=== PATIENT | female | born 1935 | race Caucasian/White ===

== ENCOUNTER 2021-02-26 18:32 | Inpatient (IN) | payer OTHER, MEDICAID ==
[~2021-02-26] VITALS: Ht 160 cm; Wt 70.8 kg
[2021-02-26 18:35] VITALS: BP 108/66
--- NOTE | 2021-02-26 18:44 | NUR ---
Pt WC assisted to bed 07.
[2021-02-26] MEDS ORDERED: ONDANSETRON 4 MG/2 ML VIAL IVP ONE (19:15)
[2021-02-26] MEDS ORDERED: NACL 0.9% 1,000 ML IV SCH ×2 (19:15→23:05)
--- NOTE | 2021-02-26 19:15 | NUR ---
Received in bed 9 with c/o nausea, vomiting x 6 episodes and abdominal pain since this morning while doing yard work. Acute onset LUQ and epigastric region, 01/18, "tearing/constant," non-radiating pain. +Chills +Dry mouth. Denies headache, fever, chills, diarrhea, SOB, chest pain. PMH/Sx/Meds: Denies NKA
--- NOTE | 2021-02-26 19:38 | NUR ---
Ultrasound at bedside.
[2021-02-26 19:42] LABS: BASOPHILS % (AUTO) 0.2 % (0.0-2.0); HEMATOCRIT 40.8 % (36-48); HEMOGLOBIN 13.7 g/dL (12.0-16.0); LYMPHOCYTES # (AUTO) 0.5 K/uL (2.5-16.5); LYMPHOCYTES % (AUTO) 4.1 % (20.5-51.1); MEAN CORPUSCULAR HEMOGLOBIN 30 pg (27-31); MEAN CORPUSCULAR HGB CONC 34 g/dL (33-37); MEAN CORPUSCULAR VOLUME 90.5 fL (80-94); MONOCYTES # (AUTO) 0.3 K/uL (0.8-1.0); MONOCYTES % (AUTO) 2.9 % (1.7-9.3); NEUTROPHILS # (AUTO) 10.7 K/uL (1.8-7.7); NEUTROPHILS % (AUTO) 92.8 % (42.2-75.2); PLATELET COUNT (AUTO) 235 K/uL (140-450); RED BLOOD CELL COUNT(AUTO) 4.51 MIL/uL (4.20-5.40); RED CELL DISTRIBUTION WIDTH 13.4 % (11.6-13.7); WHITE BLOOD COUNT (AUTO) 11.5 K/uL (4.8-10.8)
[2021-02-26 20:07] LABS: ALBUMIN 3.2 g/dL (3.4-5.0); AMYLASE 803 U/L (25-115); ANION GAP 13.1 (8-16); ASPARTATE AMINOTRANSFERASE 270 U/L (15-37); CARBON DIOXIDE 26.5 mmol/L (21-32); CHLORIDE 105 mmol/L (98-107); CREATININE 1.2 mg/dL (0.6-1.3); GLUCOSE 182 mg/dL (74-106); LIPASE 4770 U/L (73-393); POTASSIUM 3.6 mmol/L (3.5-5.1); SODIUM SERUM 141 mmol/L (136-145); TOTAL BILIRUBIN 0.7 mg/dL (0.0-1.0); UREA NITROGEN, BLOOD 13 mg/dL (7-18)
--- NOTE | 2021-02-26 20:30 | NUR ---
CONSENT SIGNED FOR CT
--- NOTE | 2021-02-26 20:44 | NUR ---
PT TAKEN TO CT
--- NOTE | 2021-02-26 22:00 | NUR ---
assisted up to bathroom. back to bed and made comfortable
[2021-02-26 22:07] LABS: APPEARANCE,URINE CLEAR (CLEAR); BILIRUBIN,URINE NEGATIVE (NEGATIVE); BLOOD, URINE TRACE-I (NEGATIVE); COLOR,URINE YELLOW (YELLOW); LEUKOCYTE ESTERASE ,URINE NEGATIVE (NEGATIVE); NITRITE, URINE NEGATIVE (NEGATIVE); UGLUCOSE NEGATIVE (NEGATIVE)
[2021-02-26 22:11] LABS: RBC,URINE 0-5 /HPF (0-5); WBC,URINE 0-5 /HPF (0-5)
[2021-02-26] MEDS ORDERED: MORPHINE SULFATE 4 MG/ML SYR IVP ONE (22:35)
[2021-02-26] MEDS ORDERED: MAG SULF 2000 MG/WATER PREMIX 50 ML IV PRN ×2 (23:05→23:15)
[2021-02-26] MEDS ORDERED: HYDROcodone/APAP 5/325 MG 1 TAB TAB PO PRN ×2 (23:05→23:15)
[2021-02-26] MEDS ORDERED: MAGNESIUM OXIDE 400 MG TAB PO PRN ×2 (23:05→23:15)
[2021-02-26] MEDS ORDERED: ONDANSETRON 4 MG/2 ML VIAL IVP PRN ×2 (23:05→23:15)
[2021-02-26] MEDS ORDERED: MORPHINE SULFATE 4 MG/ML SYR IVP PRN ×2 (23:05→23:15)
[2021-02-26] MEDS ORDERED: POTASSIUM CHLORIDE 10 MEQ TABER PO PRN ×2 (23:05→23:15)
[2021-02-26] MEDS ORDERED: KCL 20 MEQ/WATER INJ PREMIX 200 ML IV PRN ×2 (23:05→23:15)
[2021-02-26] MEDS ORDERED: ACETAMINOPHEN 325 MG TAB PO PRN ×2 (23:05→23:15)
[2021-02-27] MEDS: NACL 0.9% 1,000 ML IV SCH ×2 (00:20→11:45)
--- NOTE | 2021-02-27 02:00 | NUR ---
resting in bed with eyes closed, respirations regular and unlabored
--- NOTE | 2021-02-27 05:11 | NUR ---
lab at bedside
[2021-02-27] MEDS ORDERED: ASPI-1822 PO (05:27)
--- NOTE | 2021-02-27 06:00 | NUR ---
RESTING IN BED WITH EYES CLOSED, RESPIRATIONS REGULAR AND UNLABORED
[2021-02-27 06:02] LABS: CHOL/HDL RATIO 3.2 (1-4.5); MAGNESIUM 1.9 mg/dL (1.8-2.4)
[2021-02-27 06:04] LABS: ALBUMIN 2.9 g/dL (3.4-5.0); ANION GAP 11.7 (8-16); ASPARTATE AMINOTRANSFERASE 206 U/L (15-37); CARBON DIOXIDE 27.3 mmol/L (21-32); CHLORIDE 109 mmol/L (98-107); CREATININE 0.8 mg/dL (0.6-1.3); GLUCOSE 126 mg/dL (74-106); SODIUM SERUM 144 mmol/L (136-145); TOTAL BILIRUBIN 0.8 mg/dL (0.0-1.0); UREA NITROGEN, BLOOD 14 mg/dL (7-18)
[2021-02-27 06:09] LABS: EOSINOPHILS % (AUTO) 0.2 % (0.0-4.0); HEMATOCRIT 39.5 % (36-48); HEMOGLOBIN 13.2 g/dL (12.0-16.0); LYMPHOCYTES # (AUTO) 1.4 K/uL (2.5-16.5); LYMPHOCYTES % (AUTO) 9.9 % (20.5-51.1); MEAN CORPUSCULAR HEMOGLOBIN 30 pg (27-31); MEAN CORPUSCULAR HGB CONC 34 g/dL (33-37); MEAN CORPUSCULAR VOLUME 90.6 fL (80-94); MONOCYTES # (AUTO) 0.5 K/uL (0.8-1.0); MONOCYTES % (AUTO) 3.3 % (1.7-9.3); NEUTROPHILS # (AUTO) 12.7 K/uL (1.8-7.7); NEUTROPHILS % (AUTO) 86.6 % (42.2-75.2); PLATELET COUNT (AUTO) 226 K/uL (140-450); RED BLOOD CELL COUNT(AUTO) 4.35 MIL/uL (4.20-5.40); RED CELL DISTRIBUTION WIDTH 13.8 % (11.6-13.7); WHITE BLOOD COUNT (AUTO) 14.7 K/uL (4.8-10.8)
--- NOTE | 2021-02-27 07:25 | NUR ---
RECEIVED REPORT FROM KAI WEST. TRANSFER OF CARE AT THIS TIME.
--- NOTE | 2021-02-27 07:37 | NUR ---
PT AMBULATED TO RESTROOM WITH MINIMAL ASSISTANCE TO RESTROOM.
--- NOTE | 2021-02-27 07:42 | NUR ---
PT AMBULATED TO ER BED 9 WITH MINIMAL ASSISTANCE.
--- NOTE | 2021-02-27 08:20 | NUR ---
PT SLEEPING, VISIBLE EQUAL RISE AND FALL OF CHEST, VSS, WILL CONTINUE TO MONITOR.
[2021-02-27] MEDS ORDERED: DOCUSATE SODIUM 100 MG GELCAP PO SCH (09:00)
[2021-02-27] MEDS: DOCUSATE SODIUM 100 MG GELCAP PO SCH (09:36)
--- NOTE | 2021-02-27 10:48 | NUR ---
DC PLANN[age] YRS OLD FEMALE PATIENT WAS ADMITTED FROM HOME WITH A DX OF ACUTE PANCREATITIS. PATIENT HAS NO MEDICAL HISTORY, SURGICAL HISTORY APPENDECTOMY. WBC 14.7 AND LIPASE 3711. US ABDOMEN AND CT ABD/PELVIS SHOWED RENAL MASS AND CHOLECYSTITIS. ADMINISTERED IVF. URINE CULTURE PENDING. DC PLAN TO GO HOME WHEN STABLE CM TO FOLLOW. Addendum: 02/27/21 at 1056 by Thea Navas RN DC PLANNING: CALLED [facility] [phone] LEFT A MESSAGE FOR MONICA FELTON REGARDING PATIENT ADMISSION.
--- NOTE | 2021-02-27 11:55 | NUR ---
SPOKE WITH NUCLEAR MED REP ALLISON FOR HIDA SCAN ORDER. SCHEDULED FOR 02/28/21 BETWEEN 10 AND 11AM. PREP: NPO AFTER MIDNIGHT AND NO OPIODS 4HRS PRIOR.
--- NOTE | 2021-02-27 12:02 | NUR ---
PT SLEEPING ON RIGHT SIDE, VSS, WILL CONTINUE TO MONITOR.
--- NOTE | 2021-02-27 12:26 | NUR ---
PT AMBULATED WITH ASSISTANCE TO RESTROOM.
--- NOTE | 2021-02-27 12:30 | NUR ---
PT AMBULATED WITH ASSISTANCE TO ER BED 9.
--- NOTE | 2021-02-27 12:36 | NUR ---
PT STATES +NAUSEA, EMESIS BAG PROVIDED. ZOFRAN 4MG TO BE ADMINISTERED IVP PRN PER MD ORDER. WILL REASSESS.
--- NOTE | 2021-02-27 14:50 | NUR ---
Patient will be admitted to care of HERMANN. Admited to Med/Surg. Will go to room 120A. Belongings list completed. Report to JUDIE.
--- NOTE | 2021-02-27 15:00 | NUR ---
RECEIVED REPORT FROM ER NURSE.
--- NOTE | 2021-02-27 15:30 | NUR ---
RECEIVED PT IN WHEELCHAIR TO ROOM 120A WITH 2L OF O2 NC. BREATHING IS EVEN AND UNLABORED. NO SIGNS OF DISTRESS. PT VS ARE WNL. PT IS STABLE. FAMILY IS AT BEDSIDE. PT IS NPO. LEFT AC 18G IS INTACT. WILL RUN NS AT 80 ML/HR. AOX4. FULL CODE. DENIES PAIN AT THE MOMENT.
--- NOTE | 2021-02-27 19:20 | NUR ---
ENDORSED PT TO PAWN BROKER NURSE AT BEDSIDE. DISCUSSED POC. PT IS STABLE.
--- NOTE | 2021-02-27 19:21 | NUR ---
RECEIVED BEDSIDE REPORT FROM AM SHIFT RN. PT IS ON 2L NC. A&O X4. AMBULATORY WITH LITTLE ASSISTANCE. HAS A LEFT AC 18G, IVF NS @ 80MLS/HR, SKIN IS INTACT. PT IS SALVADOREAN SPEAKING. SAFETY MEASURES ARE IN PLACE, HOB SEMI-FOWLERS, BED IS IN LOWEST POSITION AND LOCKED.
[2021-02-27 20:00] VITALS: BP 166/72
--- NOTE | 2021-02-27 21:50 | NUR ---
RECEIVED PHONE CALL FROM RADIOLOGY. SPOKE WITH ALLISON. INFORMED ME THAT PT WILL HAVE A HIDA SCAN ON 02/28/21 MID MORNING OR AFTERNOON. INFORMED ME TO KEEP PT NPO AFTER MIDNIGHT AND NO OPIATES.
--- NOTE | 2021-02-27 22:55 | NUR ---
RECEIVED A PHONE CALL FROM NUCLEAR MED, SPOKE WITH DOM REGARDING PTS HIDA SCAN. WILL ARRIVE TMRW MORNING.
--- NOTE | 2021-02-27 23:02 | NUR ---
DOM FROM NUCLEAR MED CALLED AGAIN. STATED THAT HE WILL COME TOMORROW TO DO HIDA SCAN BUT STATED THAT HE DOESN'T KNOW WHAT TIME THAT WILL BE.
[2021-02-28] MEDS: NACL 0.9% 1,000 ML IV SCH ×2 (00:15→12:29)
--- NOTE | 2021-02-28 01:15 | NUR ---
PATIENT IS ASLEEP, NO SIGNS OF DISTRESS. IV FLUID RUNNING - NORMAL SALINE.
--- NOTE | 2021-02-28 01:53 | NUR ---
ASSISTED PT TO THE BATHROOM. PT IS ABLE TO AMBULATE WITH MINIMAL ASSISTANCE. PT DENIES ANY PAIN.
--- NOTE | 2021-02-28 03:22 | NUR ---
PATIENT IN BED ASLEEP. NO SIGNS OF DISTRESS. OBSERVATION OF CHEST RISE AND FALL. BED IN LOWEST POSITION AND LOCKED. PT STABLE.
[2021-02-28 04:00] VITALS: BP 123/63
[2021-02-28 05:22] LABS: BASOPHILS % (AUTO) 0.2 % (0.0-2.0); EOSINOPHILS # (AUTO) 0.2 K/uL (0-0.4); EOSINOPHILS % (AUTO) 1.9 % (0.0-4.0); HEMATOCRIT 37.3 % (36-48); HEMOGLOBIN 12.6 g/dL (12.0-16.0); LYMPHOCYTES # (AUTO) 1.8 K/uL (2.5-16.5); LYMPHOCYTES % (AUTO) 15.4 % (20.5-51.1); MEAN CORPUSCULAR HEMOGLOBIN 31 pg (27-31); MEAN CORPUSCULAR HGB CONC 34 g/dL (33-37); MEAN CORPUSCULAR VOLUME 91.5 fL (80-94); MONOCYTES # (AUTO) 0.4 K/uL (0.8-1.0); MONOCYTES % (AUTO) 3.2 % (1.7-9.3); NEUTROPHILS # (AUTO) 9.4 K/uL (1.8-7.7); NEUTROPHILS % (AUTO) 79.3 % (42.2-75.2); PLATELET COUNT (AUTO) 205 K/uL (140-450); RED BLOOD CELL COUNT(AUTO) 4.08 MIL/uL (4.20-5.40); RED CELL DISTRIBUTION WIDTH 13.8 % (11.6-13.7); WHITE BLOOD COUNT (AUTO) 11.8 K/uL (4.8-10.8)
[2021-02-28 05:32] LABS: ALBUMIN 2.6 g/dL (3.4-5.0); ANION GAP 13.2 (8-16); ASPARTATE AMINOTRANSFERASE 58 U/L (15-37); CARBON DIOXIDE 24.3 mmol/L (21-32); CHLORIDE 109 mmol/L (98-107); CREATININE 0.7 mg/dL (0.6-1.3); GLUCOSE 72 mg/dL (74-106); MAGNESIUM 1.9 mg/dL (1.8-2.4); POTASSIUM 3.5 mmol/L (3.5-5.1); SODIUM SERUM 143 mmol/L (136-145); TOTAL BILIRUBIN 0.6 mg/dL (0.0-1.0); UREA NITROGEN, BLOOD 11 mg/dL (7-18)
[2021-02-28 06:01] LABS: LIPASE 3228 U/L (73-393)
--- NOTE | 2021-02-28 07:03 | NUR ---
PATIENT HAS BEEN SCREENED AND CATEGORIZED MODERATE NUTRITION RISK. PATIENT WILL BE SEEN WITHIN 3-5 DAYS OF ADMISSION. 03/02/21-03/04/21 MARLY SERRANO MS, RDN
--- NOTE | 2021-02-28 07:30 | NUR ---
PASSED ON BEDSIDE ENDORSEMENT TO AM SHIFT RN. PT IS STABLE. NO SIGNS OF DISTRESS
--- NOTE | 2021-02-28 07:32 | NUR ---
RECEIVED BEDSIDE REPORT FROM BANJO REPAIRER NURSE FOR CONTINUITY OF CARE. PT IS AOX4, KYRGYZ SPEAKING AND ABLE TO MAKE NEEDS KNOWN. RESPIRATIONS EVEN AND UNLABORED. ON 2L NC WITH NO RESPIRATORY DISTRESS NOTED. SKIN IS WARM, DRY, AND INTACT. IV ACCESS ON LAC 18 G INFUSING NS @ 80 ML/HR. INTACT AND PATENT. DENIES PAIN AT THE MOMENT. SCHEDULED HIDA SCAN TODAY WILL FOLLOW UP. PLAN OF CARE DISCUSSED. SAFETY PRECAUTIONS. CALL LIGHT WITHIN REACH. WILL CONTINUE TO MONITOR.
[2021-02-28 08:00] VITALS: BP 140/69
[2021-02-28] MEDS: DOCUSATE SODIUM 100 MG GELCAP PO SCH (08:19)
--- NOTE | 2021-02-28 08:21 | NUR ---
ALL SCHEDULED MEDS GIVEN. PT IS STABLE. NO DISTRESS NOTED. WILL CONTINUE TO MONITOR.
--- NOTE | 2021-02-28 09:00 | NUR ---
HIDA SCAN TECH AT PATIENT'S BEDSIDE
--- NOTE | 2021-02-28 09:00 | NUR ---
INSERTED NEW 22 G IV ON RAC. IV ON LAC WAS DISLODGED.
--- NOTE | 2021-02-28 11:05 | NUR ---
PATIENT COMPLETED HIDA SCAN PROCEDURE.
--- NOTE | 2021-02-28 13:10 | NUR ---
DR. HOLLIS AT PATIENT'S BEDSIDE DISCUSSING PLAN OF CARE.
[2021-02-28] MEDS: POTASSIUM CHLORIDE 10 MEQ in LACTATED RINGERS 1,000 ML IV SCH (13:16)
--- NOTE | 2021-02-28 15:20 | NUR ---
CHECKED ON PATIENT. PATIENT IS STABLE. NO DISTRESS NOTED. WILL CONTINUE TO MONITOR.
[2021-02-28 16:00] VITALS: BP 133/75
--- NOTE | 2021-02-28 17:42 | NUR ---
CHECKED ON PATIENT. PATIENT IS STABLE. NO DISTRESS NOTED. WILL CONTINUE TO MONITOR.
--- NOTE | 2021-02-28 19:28 | NUR ---
ENDORSED TO THERAPEUTIC RECREATION SPECIALIST NURSE FOR CONTINUITY OF CARE. PT IS STABLE.
--- NOTE | 2021-02-28 19:30 | NUR ---
RECEIVED BEDSIDE ENDORSEMENT FROM AM SHIFT RN. PT IS SRI LANKAN SPEAKING, A&O X4. PT IS ON NASAL CANNULA 2L. AMBULATORY WITH MINIMAL ASSISTANCE. PT HAS A RAC 20G. SAFETY MEASURES IN PLACE - BED LOCKED AND LOWEST POSITION. HOB SEMI-FOWLERS. NO SIGNS OF DISTRESS. PT STABLE. RUNNING LR WITH POTASSIUM CHLORIDE 10meq AT 75ML/HR.
[2021-02-28 20:00] VITALS: BP 132/58
[2021-02-28] MEDS: PIPERACILLIN/TAZOBACTAM 3.375 GM in DEXTROSE 5% 50 ML IV SCH (21:38)
--- NOTE | 2021-02-28 21:40 | NUR ---
PT IS BED WATCHING TV. NO SIGNS OF DISTRESS. PT STABLE.
--- NOTE | 2021-02-28 23:05 | NUR ---
PT IS AMBULATORY BUT STATED THAT SHE WOULD LIKE USE A DIAPER INSTEAD. SHE STATED SHE HAS BEEN URINATING OFTEN AND DOES NOT WANT TO GET UP EVERY TIME TO USE THE BATHROOM. PLACED CHUX UNDERNEATH HER AND ASSISTED PT WITH A DIAPER. PT IS STABLE. NO SIGNS OF DISTRESS.
[2021-03-01] MEDS: POTASSIUM CHLORIDE 10 MEQ in LACTATED RINGERS 1,000 ML IV SCH ×2 (01:21→05:17)
--- NOTE | 2021-03-01 02:16 | NUR ---
PATIENT IS SLEEPING. NO SIGNS OF DISTRESS. SAFETY MEASURES IN PLACE.
[2021-03-01 04:00] VITALS: BP 138/69
[2021-03-01] MEDS: PIPERACILLIN/TAZOBACTAM 3.375 GM in DEXTROSE 5% 50 ML IV SCH ×3 (05:17→20:59)
--- NOTE | 2021-03-01 05:26 | NUR ---
AMBULATED PT TO THE BATHROOM, ASSISTED HER INTO BED AND ADMINISTERED SCHEDULED ABX. PT STABLE. NO SIGNS OF DISTRESS.
[2021-03-01 05:28] LABS: BASOPHILS % (AUTO) 0.3 % (0.0-2.0); EOSINOPHILS # (AUTO) 0.3 K/uL (0-0.4); EOSINOPHILS % (AUTO) 3.5 % (0.0-4.0); HEMATOCRIT 36.6 % (36-48); HEMOGLOBIN 12.4 g/dL (12.0-16.0); LYMPHOCYTES # (AUTO) 1.8 K/uL (2.5-16.5); MEAN CORPUSCULAR HEMOGLOBIN 31 pg (27-31); MEAN CORPUSCULAR HGB CONC 34 g/dL (33-37); MEAN CORPUSCULAR VOLUME 90.2 fL (80-94); MONOCYTES # (AUTO) 0.5 K/uL (0.8-1.0); MONOCYTES % (AUTO) 5.5 % (1.7-9.3); NEUTROPHILS # (AUTO) 6.8 K/uL (1.8-7.7); NEUTROPHILS % (AUTO) 71.7 % (42.2-75.2); PLATELET COUNT (AUTO) 218 K/uL (140-450); RED BLOOD CELL COUNT(AUTO) 4.06 MIL/uL (4.20-5.40); RED CELL DISTRIBUTION WIDTH 13.1 % (11.6-13.7); WHITE BLOOD COUNT (AUTO) 9.5 K/uL (4.8-10.8)
[2021-03-01 05:47] LABS: ALBUMIN 2.6 g/dL (3.4-5.0); ANION GAP 11.4 (8-16); ASPARTATE AMINOTRANSFERASE 29 U/L (15-37); CARBON DIOXIDE 27.1 mmol/L (21-32); CHLORIDE 107 mmol/L (98-107); CREATININE 0.6 mg/dL (0.6-1.3); GLUCOSE 73 mg/dL (74-106); LIPASE 855 U/L (73-393); MAGNESIUM 2.1 mg/dL (1.8-2.4); POTASSIUM 3.5 mmol/L (3.5-5.1); SODIUM SERUM 142 mmol/L (136-145); TOTAL BILIRUBIN 0.7 mg/dL (0.0-1.0); UREA NITROGEN, BLOOD 8 mg/dL (7-18)
--- NOTE | 2021-03-01 07:22 | NUR ---
PT HAS BEEN ENDORSED BY FISH ROE PROCESSOR NURSE FOR CONTINUITY OF CARE, POC DISCUSSED. PT IS RESTING IN BED WITH CHEST RISING AND FALLING EVEN AND UNLABORED. PT A&OX4. PT SKIN INTACT WITH A RIGHT AC 20 G RUNNING LR @75. PT REPORTS ALL NEEDS ARE MET AND PAIN IS TOLERABLE. ALL SAFETY MEASURES IN PLACE, CALL LIGHT WITHIN REACH. WILL CONTINUE TO MONITOR.
--- NOTE | 2021-03-01 07:29 | NUR ---
passed on bedside report to am shift rn. pt is stable. no signs of distress.
[2021-03-01 08:00] VITALS: BP 111/63
--- NOTE | 2021-03-01 09:48 | NUR ---
FLOWER MEDICATION ADMINISTERED PER MD ORDER. PT TOLERATED ADMINISTRATION. PT ON THE PHONE WITH FAMILY MEMBER. PT IS STABLE WITH CALL LIGHT WITHIN REACH. ALL SAFETY MEASURES IN PLACE, WILL CONTINUE TO MONITOR.
[2021-03-01] MEDS: DOCUSATE SODIUM 100 MG GELCAP PO SCH (09:54)
[2021-03-01] MEDS: SENNA 8.6 MG TAB PO SCH (09:54)
--- NOTE | 2021-03-01 11:01 | NUR ---
PT IS STABLE IN BED WITH ALL SAFETY MEASURES IN PLACE, CALL LIGHT WITHIN REACH WILL CONTINUE TO MONITOR.
--- NOTE | 2021-03-01 11:24 | NUR ---
PT ASSISTED TO THE RESTROOM IN STABLE CONDITION.
--- NOTE | 2021-03-01 11:52 | NUR ---
PT RECONNECTED TO IV FLUIDS. SON AT BEDSIDE, DISCUSSED PTS PLAN OF CARE. ANSWERED ALL QUESTIONS. PT STABLE, ALL SAFETY MEASURES IN PLACE, CALL LIGHT WITHIN REACH. WILL CONTINUE TO MONITOR.
--- NOTE | 2021-03-01 12:10 | NUR ---
PT PROVIDED WITH ALL PERSONNEL HYGIENE MATERIAL.
[2021-03-01] MEDS: POTASSIUM CHL 20MEQ/D5-NS 1,000 ML IV SCH (12:25)
--- NOTE | 2021-03-01 13:48 | NUR ---
FLOWER MEDICATION AND NEW ORDERED IV FLUIDS STARTED. PT IV IS PATENT AND INTACT. PT IS STABLE AND DENIES PAIN AT THIS TIME. ALL SAFETY MEASURES IN PLACE, CALL LIGHT WITHIN REACH. WILL CONTINUE TO MONITOR.
--- NOTE | 2021-03-01 14:41 | NUR ---
PT IS STABLE IN BED WITH DAUGHTER AT BEDSIDE. ALL SAFETY MEASURES IN PLACE, CALL LIGHT WITHIN REACH. WILL CONTINUE TO MONITOR.
--- NOTE | 2021-03-01 16:23 | NUR ---
ROUNDED ON PT, PT IS STABLE WITH NO S/S OF DISTRESS. ALL SAFETY MEASURES IN PLACE, CALL LIGHT WITHIN REACH. WILL CONTINUE TO MONITOR.
--- NOTE | 2021-03-01 17:30 | NUR ---
PT ASSISTED TO THE RESTROOM. PT IS STABLE.
--- NOTE | 2021-03-01 18:51 | NUR ---
PT REMAINED STABLE THROUGHOUT SHIFT. ALL NEEDS HAVE BEEN MET. WILL ENDORSE TO EXTRUDING PRESS ADJUSTER NURSE.
[2021-03-01 20:00] VITALS: BP 126/55
--- NOTE | 2021-03-01 20:00 | NUR ---
RECEIVED REPORT OF PT IN STABLE CONDITION.RESP.UNLABORED IN RA.IVF INFUSING WELL.NO C/O PAIN .CALL LIGHT WITHIN REACH.WILL CONT.MONITORING.
--- NOTE | 2021-03-02 01:21 | NUR ---
MOVED PT TO ROOM 125 A DUE TO BATH ROOM PROBLEM.FREQUENT ROUND DONE.NO DISTRESS NOTED.CALL LIGHT IN REACH.
[2021-03-02 04:00] VITALS: BP 115/56
[2021-03-02] MEDS: PIPERACILLIN/TAZOBACTAM 3.375 GM in DEXTROSE 5% 50 ML IV SCH ×2 (04:55→12:40)
[2021-03-02 05:35] LABS: BASOPHILS % (AUTO) 0.2 % (0.0-2.0); EOSINOPHILS # (AUTO) 0.4 K/uL (0-0.4); EOSINOPHILS % (AUTO) 5.1 % (0.0-4.0); HEMATOCRIT 35.6 % (36-48); HEMOGLOBIN 12.2 g/dL (12.0-16.0); LYMPHOCYTES # (AUTO) 1.7 K/uL (2.5-16.5); LYMPHOCYTES % (AUTO) 23.9 % (20.5-51.1); MEAN CORPUSCULAR HEMOGLOBIN 31 pg (27-31); MEAN CORPUSCULAR HGB CONC 34 g/dL (33-37); MEAN CORPUSCULAR VOLUME 89.8 fL (80-94); MONOCYTES # (AUTO) 0.5 K/uL (0.8-1.0); MONOCYTES % (AUTO) 7.2 % (1.7-9.3); NEUTROPHILS # (AUTO) 4.6 K/uL (1.8-7.7); NEUTROPHILS % (AUTO) 63.6 % (42.2-75.2); PLATELET COUNT (AUTO) 225 K/uL (140-450); RED BLOOD CELL COUNT(AUTO) 3.97 MIL/uL (4.20-5.40)
--- NOTE | 2021-03-02 06:04 | NUR ---
SLEPT WELL.CHANGED IV SITE TO RT.FA.W/#22G.IVF INFUSING WELL.HAD BMX2.NO DISTRESS NOTED AT THIS TIME.
[2021-03-02 06:07] LABS: ALBUMIN 2.7 g/dL (3.4-5.0); ANION GAP 10.7 (8-16); ASPARTATE AMINOTRANSFERASE 19 U/L (15-37); CHLORIDE 108 mmol/L (98-107); CREATININE 0.7 mg/dL (0.6-1.3); GLUCOSE 127 mg/dL (74-106); LIPASE 754 U/L (73-393); MAGNESIUM 2.1 mg/dL (1.8-2.4); POTASSIUM 3.7 mmol/L (3.5-5.1); SODIUM SERUM 143 mmol/L (136-145); TOTAL BILIRUBIN 0.4 mg/dL (0.0-1.0); UREA NITROGEN, BLOOD 7 mg/dL (7-18)
[2021-03-02 06:26] LABS: WHITE BLOOD COUNT (AUTO) 11.4 K/uL (4.8-10.8)
--- NOTE | 2021-03-02 07:20 | NUR ---
ENDORSED TO AM RN IN STABLE CONDITION.
[2021-03-02 08:00] VITALS: BP 107/59
--- NOTE | 2021-03-02 08:00 | NUR ---
RECEIVED REPORT FROM INFORMATION TECHNOLOGY PROJECT MANAGER FOR CONTINUITY OF CARE. PATIENT ALERT AWAKE ORIENTED X4, KITTITIAN SPEAKING. NOT IN ANY DISTRESS NOTED. DENIES PAIN. WITH IVF ON GOING AND INFUSING WELL. NEEDS ATTENDED. WILL CONTINUE TO MONITOR.
[2021-03-02] MEDS: SENNA 8.6 MG TAB PO SCH (08:48)
[2021-03-02] MEDS: DOCUSATE SODIUM 100 MG GELCAP PO SCH (08:48)
[2021-03-02] MEDS: POTASSIUM CHL 20MEQ/D5-NS 1,000 ML IV SCH (08:50)
[2021-03-02] MEDS ORDERED: CIPR500T4 PO (09:00)
[2021-03-02] MEDS ORDERED: METR-435 PO (09:00)
--- NOTE | 2021-03-02 09:00 | NUR ---
PATIENT TOLERATED FOOD WELL , DENIES ABDOMINAL PAIN, NO NAUSEA AND VOMITING NOTED. WILL CONTINUE TO MONITOR.
--- NOTE | 2021-03-02 09:20 | NUR ---
SEEN BY DR ZAPATA AND DISCUSSED THE PLAN OF CARE. FOR POSSIBLE DC TODAY.
--- NOTE | 2021-03-02 10:21 | NUR ---
REPORT GIVEN TO KAI PERERA FOR CONTINUITY OF CARE. IN STABLE CONDITION.
--- NOTE | 2021-03-02 10:30 | NUR ---
RECEIVED REPORT FROM JUDIE QUINN FOR CONTINUITY OF CARE, POC DISCUSSED. PT PLAN TO DISCHARGE TODAY. PT IS SITTING UP IN BED ON ROOM AIR WITH CHEST RISING AND FALLING EVEN AND UNLABORED. PT IS ON THE PHONE WITH FAMILY. PT REPORTS NO PAIN AND ALL NEEDS ARE MET. ALL SAFETY MEASURES IN PLACE, CALL LIGHT WITHIN REACH. WILL CONTINUE TO MONITOR.
--- NOTE | 2021-03-02 12:32 | NUR ---
DISCHARGE EDUCATION HAS BEEN PROVIDED TO PT. EDUCATED ON MEDICATION, FOLLOW UP APPOINTMENTS WITH PCP AND UROLOGIST REGARDING RIGHT RENAL MASS, CONTINUE A LOW FAT DIET, AND IF SYMPTOMS WORSEN TO RETURN TO NEAREST EMERGENCY ROOM. PT EDUCATION DONE WITH THIRD CONSTITUTION PARTY DENTAL HYGIENE INSTRUCTOR; DENTAL HYGIENE INSTRUCTOR NUMBER [id number]. PT VERBALIZED UNDERSTANDING. PT IS IN STABLE CONDITION. PT REPORTED DAUGHTER WILL PICK HER UP AT [place]OUG[place]Y 1300.
--- NOTE | 2021-03-02 13:34 | NUR ---
PT HAS BEEN DISCHARGED IN STABLE CONDITION, IV HAS BEEN REMOVED AND IV CATH INTACT. PT ID BAND REMOVED. ALL EDUCATION HAS BEEN GIVEN AND PT REPORS ALL QUESTIONS HAS BEEN ANSWERED. PT IN STABLE CONDITION. PT WHEELCHAIRED OUT WITH DAUGHTER AT SIDE AND ALL BELONGINGS BY THE VALVE INSPECTOR.
== END 2021-03-02 13:40 | disposition home or self-care (01) | DRG 444 ==
LOC: MED 18:32 → MMU 23:02 → MED 23:06 → MTU 02-27 14:39 → MMU 03-02 00:20
PROVIDERS: ADMIT Internal Medicine; ATTEND Internal Medicine
DX: K81.0 Acute cholecystitis (principal); K85.90 Acute pancreatitis without necrosis or infection, unspecified; N12 Tubulo-interstitial nephritis, not specified as acute or chronic; E44.1 Mild protein-calorie malnutrition; R74.01 Elevation of levels of liver transaminase levels; Z20.822 Contact with and (suspected) exposure to COVID-19; N28.89 Other specified disorders of kidney and ureter; Z90.49 Acquired absence of other specified parts of digestive tract; Z79.82 Long term (current) use of aspirin; Z79.899 Other long term (current) drug therapy
CPT/HCPCS: 36415; 76705; 78223; 80053; 81001; 82150; 83036; 83690; 83735; 83880; 84484; 85025; 87081; 87086; 93005; 96361; 96374; 96375; 99285; J2270; J2405; J2543; J3480; J7060; J7120; Q0092; Q9967